=== PATIENT | female | born 1995 | race Caucasian/White ===

== ENCOUNTER 2017-07-07 14:09 | Emergency (ER) | payer OTHER ==
[2017-07-07 14:15] VITALS: BP 117/69; PULSE 87; RESP 18; TEMP 97.2; O2SAT 96
--- NOTE | 2017-07-07 14:42 | EDPHY ---
General - History Smoking Status: Never smoked Narrative: CHIEF COMPLAINT: Concerned about running out of pain medication HISTORY OF PRESENT ILLNESS: Patient presents with complaints of being afraid that she is going to read her Percocet medication. This was prescribed after tonsillectomy performed yesterday by Dr. Amor. She was prescribed Percocet 5/325, quantity 20. This was written as 1-2 pills by mouth every 6 hr. She has been taking 2 pills every 6 hr due to severe pain. She says she contacted their office today and they informed that that was a mistake and she should have had more medication prescribed. The in structure to come to the emergency department. She now has a pills left. She has no complaints of bleeding. No fever. No difficulty swallowing. Just severe pain. She is tolerating water by mouth. No other associated complaints or modifying factors. REVIEW OF SYSTEMS: Ten systems reviewed and are negative unless otherwise noted in the HPI PCP: No PCP. SPECIALISTS: Dr. Amor PAST MEDICAL HISTORY: Uncomplicated medical history PAST SURGICAL HISTORY: Recent tonsillectomy SOCIAL HISTORY: Nonsmoker. [employer] student FAMILY HISTORY: Noncontributory EXAMINATION General Appearance: Alert, no distress Head: normocephalic, atraumatic Eyes: Pupils equal and round, no conjunctival pallor or injection ENT, Mouth: Mucous membranes moist. Uvula is midline. There are eschars in the tonsillar beds without bleeding. Airway is widely patent. Minimal edema. Neck: Normal inspection, supple, non-tender. Respiratory: Lungs are clear to auscultation Cardiovascular: Regular rate and rhythm. No murmur Neurological: A&O, nonfocal, normal gait Skin: Warm and dry, no rash. No petechiae or purpura Extremities: Nontender, no pedal edema Psychiatric: Mood and affect normal DIFFERENTIAL DIAGNOSES: Including but not limited to postoperative pain, postoperative complication MDM: 2:25 p.m. Postoperative pain rated as severe. The patient has taking the pain medication as prescribed due to severe pain. I do not appreciate any active bleeding. She is in no acute distress with airway widely patent. I have verified the patient' s prescription history with only the 1 narcotic prescribed recently. I do feel comfortable providing 1 further prescription for her to last through Sunday. At that time she will need to follow up with her surgeon for further medication. She is comfortable this plan. She is discharged home stable condition. SUPERVISION: This patient was independently evaluated without direct involvement of or examination by the attending physician. (Terrance Hathaway) Medical Decision Making: PHYSICIAN DOCUMENTATION: The patient was evaluated and managed by the Physician Pan Devulcanizer Helper. My co- signature indicates that I have reviewed this chart and I agree with the findings and plan of care as documented. I am the secondary supervising physician. (Clive Barrow) - Objective Vital Signs: Initial Vital Signs Temperature (C) 36.2 C 07/07/17 14:13 Heart Rate 87 07/07/17 14:13 Respiratory Rate 18 07/07/17 14:13 Blood Pressure 117/69 07/07/17 14:13 O2 Sat (%) 96 07/07/17 14:13 O2 Delivery Mode Room Air Allergies/Adverse Reactions: No Known Allergies Allergy (Unverified 07/07/17 14:11) Home Medications: Medication Instructions Recorded oxyCODONE HCL/ACETAMINOPHEN 1 each PO Q4-6PRN PRN #15 tablet 07/07/17 [Percocet 5-325 mg Tablet] Departure - Departure Disposition: Home, Routine, Self-Care Clinical Impression: Post-operative pain Instructions: Pain Management After Surgery (DC) Additional Instructions: 1. Medication as prescribed as needed 2. Contact her surgeon for further medication and care 3. ED precautions as discussed Referrals: Kenneth Amor MD [Medical Doctor] - As per Instructions Prescriptions: oxyCODONE HCL/ACETAMINOPHEN [Percocet 5-325 mg Tablet] 1 each PO Q4-6PRN PRN # 15 tablet PRN Reason: Pain, Breakthrough
== END 2017-07-07 14:45 | disposition home or self-care (01) ==
DX: G89.18 Other acute postprocedural pain (principal); R07.0 Pain in throat